=== PATIENT | male | born 1940 | race Native Hawaiian/Other Pacific Islander ===

== ENCOUNTER 2017-07-13 07:05 | Outpatient (CLI) | payer OTHER ==
[2017-07-13] MEDS ORDERED: CLOPIDOGREL75 MG PO (07:22)
[2017-07-13] MEDS ORDERED: LISI5TAB10 PO (07:22)
[2017-07-13] MEDS ORDERED: PANTOPRAZOLE 40MG TA PO (07:23)
[2017-07-13] MEDS ORDERED: LIPITOR40 MG PO (07:23)
[2017-07-13] MEDS ORDERED: GERITOL (07:27)
[2017-07-13] MEDS ORDERED: MECLIZINE25 M1 OR (07:27)
[2017-07-13] MEDS ORDERED: FURO20TA67 PO (07:28)
[2017-07-13] MEDS ORDERED: METFORMIN HCL500 M1 PO (07:28)
[2017-07-13] MEDS ORDERED: ADLT ASA LOW81 MG PO (07:29)
[2017-07-13] MEDS ORDERED: POTASSIUM99 MG OR (07:30)
[2017-07-13] MEDS ORDERED: GRALISE600 MG OR (07:30)
[2017-07-13] MEDS ORDERED: B121000 MCG PO (07:31)
[2017-07-13] MEDS ORDERED: B6 FOLIC ACD PO (07:32)
[2017-07-13] MEDS ORDERED: D31000 UNI1 PO (07:32)
[2017-07-13] MEDS ORDERED: LUTEIN20 M1 OR (07:33)
== END 2017-07-13 07:10 | disposition short-term general hospital (02) ==
LOC: AMB 07:05
DX: R55 Syncope and collapse (principal)
CPT/HCPCS: A0425; A0427

== ENCOUNTER 2017-07-13 07:13 | Inpatient (IN) | payer OTHER ==
[~2017-07-13] VITALS: Ht 182.9 cm; Wt 120.7 kg
[2017-07-13] VITALS (7 sets, daily range): BP systolic 110–139; BP diastolic 73–92; TEMP 97.4–98.5; Ht 182.9 cm; Wt 120.7 kg
[2017-07-13] MEDS ORDERED: LISI5TAB10 PO (07:22)
[2017-07-13] MEDS ORDERED: CLOPIDOGREL75 MG PO (07:22)
[2017-07-13] MEDS ORDERED: PANTOPRAZOLE 40MG TA PO (07:23)
[2017-07-13] MEDS ORDERED: LIPITOR40 MG PO (07:23)
[2017-07-13] MEDS ORDERED: GERITOL (07:27)
[2017-07-13] MEDS ORDERED: MECLIZINE25 M1 OR (07:27)
[2017-07-13] MEDS ORDERED: FURO20TA67 PO (07:28)
[2017-07-13] MEDS ORDERED: METFORMIN HCL500 M1 PO (07:28)
[2017-07-13] MEDS ORDERED: ADLT ASA LOW81 MG PO (07:29)
[2017-07-13] MEDS ORDERED: POTASSIUM99 MG OR (07:30)
[2017-07-13] MEDS ORDERED: GRALISE600 MG OR (07:30)
[2017-07-13] MEDS ORDERED: B121000 MCG PO (07:31)
[2017-07-13] MEDS ORDERED: B6 FOLIC ACD PO (07:32)
[2017-07-13] MEDS ORDERED: D31000 UNI1 PO (07:32)
[2017-07-13] MEDS ORDERED: LUTEIN20 M1 OR (07:33)
[2017-07-13 07:59] LABS: PLATELET COUNT 338 K/uL (142-355)
[2017-07-13 08:02] LABS: POTASSIUM 3.2 mmol/L (3.6-5.2); SODIUM 136 mmol/L (136-145)
[2017-07-13 08:22] LABS: PARTIAL THROMBOPLASTIN TIME 20.9 SECONDS (24.5-33.6)
[2017-07-14] VITALS (7 sets, daily range): BP systolic 126–153; BP diastolic 84–94; TEMP 97.6–98.2
[2017-07-14 06:28] LABS: PLATELET COUNT 245 K/uL (142-355)
[2017-07-15 03:44] VITALS: BP 159/89; TEMP 98.1
[2017-07-15 05:17] LABS: PLATELET COUNT 252 K/uL (142-355)
[2017-07-15 05:45] LABS: POTASSIUM 4.1 mmol/L (3.6-5.2)
[2017-07-15 07:10] VITALS: BP 138/80; TEMP 98
[2017-07-15 10:41] LABS: PARTIAL THROMBOPLASTIN TIME 27.6 SECONDS (24.5-33.6)
[2017-07-15 12:14] VITALS: BP 146/81; TEMP 98.1
[2017-07-15 16:00] VITALS: BP 160/88; TEMP 98.7
[2017-07-15 19:50] VITALS: BP 127/77; TEMP 98.4
[2017-07-16] VITALS: BP 138/85; TEMP 97.7
[2017-07-16 03:50] VITALS: BP 159/88; TEMP 97.8
[2017-07-16 06:14] LABS: POTASSIUM 3.8 mmol/L (3.6-5.2)
[2017-07-16 06:17] LABS: PLATELET COUNT 258 K/uL (142-355)
[2017-07-16 06:59] LABS: PARTIAL THROMBOPLASTIN TIME 26.1 SECONDS (24.5-33.6)
[2017-07-16 08:00] VITALS: BP 144/92; TEMP 97.7
[2017-07-16 12:00] VITALS: BP 157/100; TEMP 97.9
[2017-07-16 16:00] VITALS: BP 165/94; TEMP 98.3
[2017-07-16 20:00] VITALS: BP 149/92; TEMP 97.9
[2017-07-17] VITALS: BP 163/96; TEMP 97.6
[2017-07-17 04:00] VITALS: BP 167/105; TEMP 97.9
[2017-07-17 06:15] LABS: PLATELET COUNT 286 K/uL (142-355)
[2017-07-17 06:29] LABS: POTASSIUM 3.7 mmol/L (3.6-5.2)
[2017-07-17 06:39] LABS: PARTIAL THROMBOPLASTIN TIME 25.8 SECONDS (24.5-33.6)
[2017-07-17 08:00] VITALS: BP 176/100; TEMP 97.9
[2017-07-17] MEDS ORDERED: WARF10TA5 PO (09:57)
== END 2017-07-17 12:05 | disposition home or self-care (01) | DRG 176 ==
LOC: ED 07:13 → MED/SURG 09:23 → ED 09:23 → MED/SURG 09:23
PROVIDERS: Specialist; ADMIT Family Medicine
DX: I26.99 Other pulmonary embolism without acute cor pulmonale (principal); G40.802 Other epilepsy, not intractable, without status epilepticus; I10 Essential (primary) hypertension; I25.10 Atherosclerotic heart disease of native coronary artery without angina pectoris; E11.9 Type 2 diabetes mellitus without complications; K21.9 Gastro-esophageal reflux disease without esophagitis; E78.4 Other hyperlipidemia; K76.89 Other specified diseases of liver
CPT/HCPCS: 36415; 36600; 80053; 81000; 82550; 82553; 82805; 82948; 83735; 83880; 84100; 84484; 85027; 85379; 85610; 85730; 93005; 94760; 96366; 99283; J1165; J1885; J1940; Q9963

== ENCOUNTER 2017-10-08 10:34 | Outpatient (CLI) | payer OTHER ==
[~2017-10-08 10:34] MED LIST: ADLT ASA LOW81 MG PO; B121000 MCG PO; B6 FOLIC ACD PO; CLOPIDOGREL75 MG PO; D31000 UNI1 PO; FURO20TA67 PO; GERITOL; GRALISE600 MG OR; LIPITOR40 MG PO; LISI5TAB10 PO; LUTEIN20 M1 OR; MECLIZINE25 M1 OR; METFORMIN HCL500 M1 PO; PANTOPRAZOLE 40MG TA PO; POTASSIUM99 MG OR; WARF10TA5 PO
== END 2017-10-08 22:04 | disposition home or self-care (01) ==
LOC: CT 10:34
DX: I26.99 Other pulmonary embolism without acute cor pulmonale (principal)
CPT/HCPCS: 36415; 82565; 84520; Q9963